=== PATIENT | male | born 1980 | race Caucasian/White ===

== ENCOUNTER 2021-04-11 03:23 | Emergency (ER) | payer BC ==
[~2021-04-11 03:23] MED LIST: NORCO 5-325 TA1 EACH PO; PERCOCET 10-321 EACH PO; ZYRTEC10 MG PO
[2021-04-11 04:24] LABS: HEMOGLOBIN 14.9 gm/dl (14.0-17.5); RED BLOOD COUNT 4.68 M/UL (4.20-5.50); WHITE BLOOD COUNT 4.9 K/UL (4.5-11.0)
[2021-04-11 04:43] LABS: BUN/CREATININE RATIO 17 (0-10)
[2021-04-11] MEDS ORDERED: INDOCIN 50 MG C50 MG PO ×2 (05:08→05:10)
== END 2021-04-11 05:20 | disposition home or self-care (01) ==
LOC: ER1 03:23
PROVIDERS: Physician Assistant
DX: M10.9 Gout, unspecified (principal)
CPT/HCPCS: 73630; 80048; 84550; 85025; 85652; 86140; 96374; 99283; J1885